=== PATIENT | male | born 1950 ===

== ENCOUNTER → 2024-09-13 16:21 | Outpatient (REF) | payer MEDICARE, OTHER, SELFPAY | LOC: RAD 16:21 | PROVIDERS: ATTENDING PHYSICIAN Internal Medicine Pulmonary Disease; FAMILY PHYSICIAN Family Medicine | DX: M79.89 Other specified soft tissue disorders (principal); I82.462 Acute embolism and thrombosis of left calf muscular vein | CPT/HCPCS: 93970 ==